=== PATIENT | female | born 1925 | race Caucasian/White ===

== ENCOUNTER 2016-11-20 11:32 | Emergency (ER) | payer MEDICARE ==
[2016-11-20 12:57] VITALS: BP 162/96
--- NOTE | 2016-11-20 13:39 | EDM.PDOC ---
ED HPI GENERAL MEDICAL PROBLEM - General Chief Complaint: Upper Extremity Injury/Pain Stated Complaint: FALL: LT WRIST INJURY/LACERATION Time Seen by Provider: 11/20/16 13:34 Source of Information: Reports: Patient, Family History Limitations: Reports: No Limitations - History of Present Illness INITIAL COMMENTS - FREE TEXT/NARRATIVE: With fall about 1100 in her home. Feels like she just lost her footing. Does use a cane at home at times. Has a walker also. Reports skin tear to left arm. Able to move her arm without difficulty. Onset: Today Onset Date: 11/20/16 Onset Time: 11:00 Location: Reports: Upper Extremity, Left Quality: Reports: Ache Severity: Mild Improves with: Reports: None Worsens with: Reports: None Context: Reports: Trauma (fall) Associated Symptoms: Reports: No Other Symptoms - Related Data Allergies Allergy/AdvReac Type Severity Reaction Status Date / Time bisacodyl Allergy Hypertensio Verified 04/23/16 07:03 [From Dulcolax (bisacodyl)] n codeine Allergy Rash Verified 04/23/16 07:03 nitrofurantoin Allergy Rash Verified 04/23/16 07:03 [From Macrobid] nitrofurantoin Allergy Rash Verified 04/23/16 07:03 macrocrystalline [From Macrobid] cephalexin [Cephalexin] AdvReac Diarrhea Verified 04/23/16 07:03 Iodinated Contrast Media - AdvReac Vomiting Verified 04/23/16 08:53 Oral and [Iodinated Contrast Media - IV Dye] morphine AdvReac Stomach Verified 04/23/16 07:03 Upset omeprazole [From Prilosec] AdvReac Diarrhea Verified 04/23/16 07:03 omeprazole magnesium AdvReac Diarrhea Verified 04/23/16 07:03 [From Prilosec] Penicillins AdvReac Stomach Verified 04/23/16 07:03 Upset Home Meds: Home Meds Acetaminophen [Tylenol Extra Strength] 500 - 1,000 mg PO Q4H PRN 06/05/13 [ History] Albuterol [Ventolin HFA] 2 puff INH QID PRN 06/05/13 [History] Cranberry Extract [Cranberry] 300 mg PO DAILY 06/05/13 [History] Estrogens, Conjugated [Premarin] 0.3 mg PO DAILY 06/05/13 [History] Fluticasone/Salmeterol [Advair 250-50 Diskus] 1 puff INH BID 06/05/13 [History] Latanoprost [Latanoprost] 1 drop EYEBOTH BEDTIME 06/05/13 [History] Levothyroxine Sodium [Levothyroxine Sodium] 88 mcg PO DAILY 06/05/13 [History] Nitroglycerin [Nitrostat] 0.4 mg SL ASDIRECTED PRN 06/05/13 [History] Potassium Chloride [Potassium Chloride] 10 meq PO DAILY 06/05/13 [History] Sertraline HCl [Sertraline HCl] 50 mg PO DAILY 06/05/13 [History] Ascorbic Acid [Vitamin C] 500 mg PO DAILY 12/27/13 [History] Furosemide [Lasix] 20 mg PO DAILY 12/27/13 [History] Losartan Potassium 50 mg PO DAILY 12/27/13 [History] Aspirin [Children's Aspirin] 81 mg PO DAILY 09/29/14 [History] Cyanocobalamin (Vitamin B-12) [B-12] 1,000 mcg PO DAILY 04/21/16 [History] Cyanocobalamin (Vitamin B-12) [Vitamin B-12] 1,000 mcg SL DAILY 04/21/16 [ History] Ergocalciferol (Vitamin D2) [Vitamin D] 2,000 unit PO DAILY 04/21/16 [History] Lidocaine HCl [Aspercreme] 1 applic TP DAILY 04/21/16 [History] Magnesium Oxide 400 mg PO DAILY 04/21/16 [History] Ranitidine [Zantac] 150 mg PO DAILY 04/21/16 [History] Past Medical History HEENT History: Reports: Allergic Rhinitis, Cataract, Impaired Vision, Otitis Media Cardiovascular History: Reports: High Cholesterol, Hypertension Respiratory History: Reports: Asthma, COPD, Pneumonia, Recurrent, Sleep Apnea, SOB Gastrointestinal History: Reports: Bowel Obstruction, Cholelithiasis, Colon Polyp, GERD Genitourinary History: Reports: UTI, Recurrent 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: Musculoskeletal History: Reports: Fracture, Osteoporosis, Other (See Below) Other Musculoskeletal History: pelivis Neurological History: Reports: Headaches, Chronic, TIA Psychiatric History: Reports: Anxiety, Depression, Mood Swings, Panic Attack Endocrine/Metabolic History: Reports: Hypothyroidism Hematologic History: Reports: B12 Deficiency Oncologic (Cancer) History: Reports: Colon - Infectious Disease History Infectious Disease History: Reports: Chicken Pox, Measles, Mumps, Scarlet Fever , Other (See Below) Other Infectious Disease History: lymes - Past Surgical History HEENT Surgical History: Reports: Cataract Surgery, Other (See Below) GI Surgical History: Reports: Appendectomy, Cholecystectomy, Colonoscopy, Colostomy, EGD, Hernia, Abdominal, Hernia Repair/Other Female Surgical History: Reports: Breast Biopsy, Hysterectomy, Salpingo- Oophorectomy, Other (See Below) Endocrine Surgical History: Reports: None Social & Family History - Tobacco Use Smoking Status *Q: Never Smoker Second Hand Smoke Exposure: No - Caffeine Use Caffeine Use: Reports: Coffee - Alcohol Use Days Per Week of Alcohol Use: 0 - Recreational Drug Use Recreational Drug Use: No Review of Systems - Review of Systems Review Of Systems: See Below Constitutional: Reports: No Symptoms Eyes: Reports: No Symptoms Ears: Reports: No Symptoms Nose: Reports: No Symptoms Mouth/Throat: Reports: No Symptoms Respiratory: Reports: No Symptoms Cardiovascular: Reports: No Symptoms Musculoskeletal: Reports: Arm Pain (left) Skin: Reports: Other (skin tear and bruise to left forearm) Neurological: Reports: No Symptoms Psychiatric: Reports: No Symptoms Trauma Exam - Physical Exam Exam: See Below Exam Limited By: No Limitations General Appearance: Reports: Alert, WD/WN, No Apparent Distress Head: Reports: Atraumatic, Normocephalic Neck: Reports: Non-Tender, Full Range of Motion, Normal Alignment, Normal Inspection Respiratory Exam: Reports: No Respiratory Distress, Lungs Clear, Normal Breath Sounds Cardiovascular: Reports: Normal Peripheral Pulses, Regular Rate, Rhythm, No Edema, No Gallop, No JVD, No Murmur, No Rub Back: Reports: Full Range of Motion, Normal Inspection, Non-Tender Extremities: Normal Range of Motion, Non-Tender Neurologic: Reports: rules examiner II-XII nml As Tested, No Motor/Sensory Deficits, Alert , Normal Mood/Affect, Oriented x 3 Skin: Reports: Other (left forearm with skin tear and bruising. Skin cleansed and opsite applied today. ) Course - Vital Signs Last Recorded V/S: Last Vital Signs Temp 97.0 F 11/20/16 12:54 Pulse 81 11/20/16 12:54 Resp 14 11/20/16 12:54 BP 162/96 H 05/21/17 12:54 Pulse Ox 98 11/20/16 12:54 Departure - Departure Time of Disposition: 13:38 Disposition: Home, Self-Care 01 Condition: good Clinical Impression: Fall Qualifiers: Encounter type: initial encounter Qualified Code(s): W19.XXXA - Unspecified fall, initial encounter Contusion of wrist, left Qualifiers: Encounter type: initial encounter Qualified Code(s): S60.212A - Contusion of left wrist, initial encounter - Discharge Information Forms: ED Department Discharge Additional Instructions: Left wrist with normal ROM. No xray obtained. Discussed use of Tylenol as needed for pain. May leave dressing in place x 1 week. Reviewed fall precautions. Life line in place. Followup if further problems. - Problem List & Annotations (1) Contusion of wrist, left SNOMED Code(s): 36214826 Code(s): S60.212A - CONTUSION OF LEFT WRIST, INITIAL ENCOUNTER Status: Acute Priority: Low Current Visit: Yes Qualifiers: Encounter type: initial encounter Qualified Code(s): S60.212A - Contusion of left wrist, initial encounter (2) Fall SNOMED Code(s): 2158221, 299108664 Code(s): W19.XXXA - UNSPECIFIED FALL, INITIAL ENCOUNTER Status: Acute Current Visit: Yes Qualifiers: Encounter type: initial encounter Qualified Code(s): W19.XXXA - Unspecified fall, initial encounter
== END 2016-11-20 14:36 | disposition home or self-care (01) ==
LOC: JP.ED 11:32
DX: S51.812A Laceration without foreign body of left forearm, initial encounter (principal); S60.212A Contusion of left wrist, initial encounter; I10 Essential (primary) hypertension; E78.00 Pure hypercholesterolemia, unspecified; J45.909 Unspecified asthma, uncomplicated; J44.9 Chronic obstructive pulmonary disease, unspecified; K21.9 Gastro-esophageal reflux disease without esophagitis; F41.9 Anxiety disorder, unspecified; F32.9 Major depressive disorder, single episode, unspecified; E03.9 Hypothyroidism, unspecified; Z98.49 Cataract extraction status, unspecified eye; Z87.440 Personal history of urinary (tract) infections; Z88.0 Allergy status to penicillin; Z88.5 Allergy status to narcotic agent; Z88.8 Allergy status to other drugs, medicaments and biological substances; Z79.82 Long term (current) use of aspirin; Z79.899 Other long term (current) drug therapy; Z90.49 Acquired absence of other specified parts of digestive tract; Z87.01 Personal history of pneumonia (recurrent); Z90.710 Acquired absence of both cervix and uterus; Z98.890 Other specified postprocedural states; W19.XXXA Unspecified fall, initial encounter
CPT/HCPCS: 99282; 99283